=== PATIENT | female | born 1990 | race African-American/Black ===

== ENCOUNTER 2017-07-12 15:14 | Emergency (ER) | payer MEDICAID | END 2017-07-12 18:00 | disposition left against medical advice (07) | LOC: ER 15:57 | DX: N94.6 Dysmenorrhea, unspecified (principal); Z53.21 Procedure and treatment not carried out due to patient leaving prior to being seen by health care provider ==

== ENCOUNTER 2019-05-14 10:21 | Emergency (ER) | payer MEDICAID ==
[~2019-05-14] VITALS: Ht 165.1 cm; Wt 60.0 kg
[2019-05-14] MEDS ORDERED: IBUPROFEN 400MG TABLET PO ONE (11:15)
[2019-05-14 12:24] VITALS: BP 118/67
== END 2019-05-14 12:24 | disposition home or self-care (01) ==
LOC: ER 10:21
DX: M54.5 Low back pain (principal); V43.62XA Car passenger injured in collision with other type car in traffic accident, initial encounter; Y93.89 Activity, other specified; Y92.488 Other paved roadways as the place of occurrence of the external cause
CPT/HCPCS: 81025; 99282

== ENCOUNTER 2019-12-10 13:19 | Emergency (ER) | payer MEDICAID ==
[~2019-12-10] VITALS: Ht 160 cm; Wt 78.0 kg
[2019-12-10] MEDS ORDERED: SODIUM CHLORIDE 0.9% 1,000 ML IV ONE (14:18)
[2019-12-10 14:57] LABS: BASOPHILS % 0.2 % (0.0-2.0); EOSINOPHILS % 1.8 % (0.0-5.0); HEMATOCRIT. 32.4 % (36.0-48.0); HEMOGLOBIN. 11.1 g/dL (12.0-16.0); LYMPHOCYTES % 20.6 % (20.0-50.0); MEAN CORPUSCULAR HEMOGLOBIN 28.5 pg (28.0-32.0); MEAN CORPUSCULAR VOLUME 83.3 fL (81.0-99.0); MEAN PLATELET VOLUME 9.3 fl (7.4-10.4); MONOCYTES % 5.7 % (2.0-8.0); NEUTROPHILS % 71.7 % (40.0-76.0); PLATELET 267 x1000/uL (130-400); RED BLOOD CELL COUNT 3.89 mill/uL (4.2-5.4); RED CELL DISTRIBUTION WIDTH 14.7 % (11.6-14.6)
[2019-12-10 15:03] LABS: CHLORIDE 107 mEq/L (98-107)
[2019-12-10 15:27] LABS: B-HCG QUANTITATIVE 39985 mIU/mL (<3)
[2019-12-10 16:40] LABS: CLARITY URINE CLEAR (CLEAR); COLOR URINE RED (YELLOW); KETONES URINE TRACE (NEGATIVE); LEUKOCYTE ESTERASE URINE TRACE (NEGATIVE); NITRITE URINE NEGATIVE (NEGATIVE); OCCULT BLOOD URINE 3+ (NEGATIVE); PH URINE 6.5 (4.5-8.0); PROTEIN URINE 1+ (NEGATIVE); SPECIFIC GRAVITY URINE 1.009 (1.005-1.030)
[2019-12-10 16:56] LABS: *BARBITURATES SCREEN URINE NEGATIVE (NEGATIVE); *BENZODIAZEPINES SCREEN URINE NEGATIVE (NEGATIVE)
[2019-12-10 16:57] LABS: *AMPHETAMINES SCREEN URINE NEGATIVE (NEGATIVE); *COCAINE SCREEN URINE NEGATIVE (NEGATIVE); CANNABINOID URINE SCREEN NEGATIVE (NEGATIVE); METHADONE URINE SCREEN NEGATIVE (NEGATIVE); OPIATES URINE SCREEN NEGATIVE (NEGATIVE); PHENCYCLIDINE URINE SCREEN NEGATIVE (NEGATIVE)
[2019-12-10] MEDS ORDERED: POTASSIUM CHLORIDE 20MEQ TABLET SR PO ONE (17:45)
[2019-12-10 18:55] VITALS: BP 107/60
== END 2019-12-10 21:02 | disposition home or self-care (01) ==
LOC: ER 13:30
DX: O20.0 Threatened abortion (principal); O23.41 Unspecified infection of urinary tract in pregnancy, first trimester; O26.891 Other specified pregnancy related conditions, first trimester; R03.0 Elevated blood-pressure reading, without diagnosis of hypertension; Z3A.12 12 weeks gestation of pregnancy
CPT/HCPCS: 36415; 76801; 76817; 80053; 80305; 81003; 84702; 85025; 86850; 86900; 86901; 99285; J7030

== ENCOUNTER 2022-02-05 07:11 | Emergency (ER) | payer MEDICAID, OTHER ==
[~2022-02-05] VITALS: Ht 154.9 cm; Wt 78.0 kg
[2022-02-05 07:27] VITALS: BP 144/83
[2022-02-05] MEDS ORDERED: KETOROLAC 60MG/2ML VIAL IM ONE (07:45)
[2022-02-05] MEDS ORDERED: T3 PO (07:45)
[2022-02-05] MEDS ORDERED: ACETAMINOPHEN WITH CODEINE 300/30MG TABLET PO ONE (07:45)
== END 2022-02-05 08:08 | disposition home or self-care (01) ==
LOC: ER 07:11
DX: M54.50 Low back pain, unspecified (principal)
CPT/HCPCS: 96372; 99283; J1885

== ENCOUNTER 2022-07-21 00:03 | Emergency (ER) | payer OTHER ==
[~2022-07-21] VITALS: Ht 154.9 cm; Wt 79.6 kg
[~2022-07-21 00:03] MED LIST: T3 PO
[2022-07-21 01:11] LABS: BASOPHILS % 0.4 % (0.0-2.0); EOSINOPHILS % 2.2 % (0.0-5.0); HEMATOCRIT. 34.1 % (36.0-48.0); HEMOGLOBIN. 11.5 g/dL (12.0-16.0); LYMPHOCYTES % 37.5 % (20.0-50.0); MEAN CORPUSCULAR HEMOGLOBIN 27.9 pg (28.0-32.0); MEAN CORPUSCULAR VOLUME 83.1 fL (81.0-99.0); MEAN PLATELET VOLUME 9.3 fl (7.4-10.4); MONOCYTES % 5.8 % (2.0-8.0); NEUTROPHILS % 54.1 % (40.0-76.0); PLATELET 236 x1000/uL (130-400); RED BLOOD CELL COUNT 4.11 mill/uL (4.2-5.4); RED CELL DISTRIBUTION WIDTH 14.6 % (11.6-14.6)
[2022-07-21 01:13] LABS: CHLORIDE 106 mEq/L (98-107)
[2022-07-21 01:15] LABS: HCG SCREEN NEGATIVE
[2022-07-21 03:06] LABS: CLARITY URINE CLEAR (CLEAR); COLOR URINE YELLOW (YELLOW); KETONES URINE NEGATIVE (NEGATIVE); LEUKOCYTE ESTERASE URINE 3+ (NEGATIVE); NITRITE URINE NEGATIVE (NEGATIVE); OCCULT BLOOD URINE NEGATIVE (NEGATIVE); PH URINE 7.5 (4.5-8.0); PROTEIN URINE NEGATIVE (NEGATIVE); SPECIFIC GRAVITY URINE 1.007 (1.005-1.030)
[2022-07-21] MEDS ORDERED: CEPH500C2 PO (04:18)
[2022-07-21 04:36] VITALS: BP 136/86
== END 2022-07-21 04:37 | disposition home or self-care (01) ==
LOC: ER 00:03
DX: R10.32 Left lower quadrant pain (principal); N39.0 Urinary tract infection, site not specified
CPT/HCPCS: 36415; 80053; 81003; 81025; 84703; 85025; 99283

== ENCOUNTER 2022-07-31 17:19 | Emergency (ER) | payer OTHER ==
[~2022-07-31] VITALS: Ht 160 cm; Wt 79.0 kg
[~2022-07-31 17:19] MED LIST changes: +CEPH500C2 PO
[2022-07-31 17:25] VITALS: BP 113/71
[2022-07-31] MEDS ORDERED: CYCL10TA21 MT (19:12)
[2022-07-31] MEDS ORDERED: CELE100C MT (19:12)
[2022-07-31] MEDS ORDERED: KETOROLAC 60MG/2ML VIAL IM ONE (19:15)
== END 2022-07-31 19:35 | disposition home or self-care (01) ==
LOC: ER 17:19
DX: M54.50 Low back pain, unspecified (principal); G89.29 Other chronic pain
CPT/HCPCS: 81025; 96372; 99283; J1885